=== PATIENT | male | born 1990 | race Caucasian/White ===

== ENCOUNTER 2020-12-21 17:28 | Emergency (ER) | payer MEDICAID ==
[~2020-12-21] VITALS: Ht 175.3 cm; Wt 79.5 kg
[~2020-12-21 17:28] MED LIST: OMEP20TA5 PO
[2020-12-21] MEDS ORDERED: IBUP-1984 PO (18:27)
[2020-12-21] MEDS ORDERED: PENI500T2 PO (18:27)
[2020-12-21 18:54] VITALS: BP 149/98
== END 2020-12-21 18:55 | disposition home or self-care (01) ==
LOC: ER 17:29
DX: K04.7 Periapical abscess without sinus (principal); K05.319 Chronic periodontitis, localized, unspecified severity; F41.9 Anxiety disorder, unspecified; F32.9 Major depressive disorder, single episode, unspecified; F15.90 Other stimulant use, unspecified, uncomplicated; Z86.69 Personal history of other diseases of the nervous system and sense organs; Z79.2 Long term (current) use of antibiotics; Z79.899 Other long term (current) drug therapy
CPT/HCPCS: 41800; 99284

== ENCOUNTER 2021-03-16 15:11 | Emergency (ER) | payer MEDICAID ==
[~2021-03-16] VITALS: Ht 175.3 cm; Wt 75.0 kg
[~2021-03-16 15:11] MED LIST changes: +LIDOcaine 1% w/EPI 1:100,000 30ml vial (MDV) ONE
[2021-03-16 15:18] VITALS: BP 145/91
[2021-03-16] MEDS ORDERED: bacitracin 15gm ointment TP ONE (15:25)
[2021-03-16] MEDS ORDERED: LIDOcaine 1% W/epiNEPHrine 1:200,000 10ml vial IJ ONE (15:25)
[2021-03-16] MEDS ORDERED: SULF1TAB45 PO (15:30)
[2021-03-16] MEDS ORDERED: CEPH250T PO (15:30)
[2021-03-16] MEDS ORDERED: mupirocin 2% ointment 22GM TP ONE (15:35)
== END 2021-03-16 15:53 | disposition home or self-care (01) ==
LOC: ER 15:11
DX: L02.511 Cutaneous abscess of right hand (principal); L03.011 Cellulitis of right finger; M79.644 Pain in right finger(s); F41.9 Anxiety disorder, unspecified; F32.9 Major depressive disorder, single episode, unspecified; F15.90 Other stimulant use, unspecified, uncomplicated; Z86.69 Personal history of other diseases of the nervous system and sense organs; Z79.2 Long term (current) use of antibiotics; Z79.899 Other long term (current) drug therapy
CPT/HCPCS: 26010; 73140; 99283